=== PATIENT | male | born 1960 | race Caucasian/White ===

== ENCOUNTER 2018-08-30 17:57 | Emergency (ER) | payer MEDICAID ==
[~2018-08-30] VITALS: Ht 188 cm; Wt 137.0 kg
[2018-08-30 18:13] VITALS: BP 147/87
--- NOTE | 2018-08-30 19:27 | NUR ---
PT TO ER BED 1
--- NOTE | 2018-08-30 19:34 | NUR ---
PT TO ED C/O RT WRIST ABSCESS TO RT WRIST X 1 WEEK. PT STATES "I SLAMMED SOME DRUGS RIGHT THERE AND I MISSED AND THEN IT BECAME BIG". SWELLING NOTED TO RT WRIST. NO DRAINAGE NOTED. PT PLACED INTO BED, PENDING MD ASHTON. PMH--HEROIN USE NKDA
[2018-08-30] MEDS ORDERED: LIDOCAINE 1% 500 MG/50 ML VIAL INJ SCH (20:35)
--- NOTE | 2018-08-30 21:00 | NUR ---
1% LIDOCAINE PULLED AND GIVEN BY FABIANA PERDOMO FOR I&D.
[2018-08-30] MEDS ORDERED: LIDOCAINE MPF 1% 5mL VIAL ONE (21:08)
[2018-08-30 21:30] VITALS: BP 144/84
--- NOTE | 2018-08-30 21:30 | NUR ---
Patient discharged with v/s stable. Written and verbal after care instructions given and explained. Patient alert, oriented and verbalized understanding of instructions. Ambulatory with steady gait. All questions addressed prior to discharge. ID band removed. Patient advised to follow up with PMD. Rx of MOTRIN, KEFLEX, AND SEPTRA given. Patient educated on indication of medication including possible reaction and side effects. Opportunity to ask questions provided and answered.
== END 2018-08-30 21:30 | disposition home or self-care (01) ==
LOC: MED 17:57
DX: L02.413 Cutaneous abscess of right upper limb (principal)
CPT/HCPCS: 10060; 99283; J2001

== ENCOUNTER 2018-12-25 18:54 | Emergency (ER) | payer MEDICAID ==
[~2018-12-25] VITALS: Ht 188 cm; Wt 134.3 kg
[2018-12-25 18:59] VITALS: BP 124/73
--- NOTE | 2018-12-25 19:10 | NUR ---
PT TO ER BED 11
--- NOTE | 2018-12-25 19:33 | NUR ---
58 YO M BIB SELF PRESENTS TO ED C/O ABSCESS TO RIGHT SUPERIOR WRIST X 3 DAYS. NO DRAINAGE OR OPENING AT THIS TIME. PT STATES HE HAD SIMILAR INSTANCE TO SAME AREA APPROX 6 MONTHS AGO. SITE IS SOFT, EDEMETOUS. PT REPORTS CAUSING 5/10 PAIN TO WRIST. PT ALSO REPORTS SUBJECTIVE FEVERS AT HOME. TEMP IS 99.8 AT THIS TIME. -- PT AWAKE, ALERT, CALM, COOPERATIVE. ANSWERS QUESTIONS APPROPRIATELY. BEHAVIOR AGE APPROPRIATE. -- SKIN PINK, WARM, DRY. BREATHING EVEN, UNLABORED. PMH-- HTN, DM
--- NOTE | 2018-12-25 20:03 | NUR ---
DR. RAMIREZ EVALUATING AT BEDSIDE.
[2018-12-25] MEDS ORDERED: NACL 0.9% 1,000 ML IV ONE (20:05)
[2018-12-25] MEDS ORDERED: MORPHINE SULFATE 4 MG/ML SYR IVP ONE (20:05)
--- NOTE | 2018-12-25 20:20 | NUR ---
Ultrasound at bedside.
--- NOTE | 2018-12-25 20:47 | NUR ---
LAB AT BEDSIDE DRAWING BLOOD.
--- NOTE | 2018-12-25 21:14 | NUR ---
RN X 2 TRIED SEVERAL ATTEMPTS TO START IV X 5 TRYS. CHARGE NURSE AT BEDSIDE ATTEMPTING IV.
[2018-12-25 21:17] LABS: BASOPHILS # (AUTO) 0.1 K/uL (0.00-0.22); BASOPHILS % (AUTO) 0.7 % (0.0-2.0); EOSINOPHILS # (AUTO) 0.3 K/uL (0-0.4); HEMATOCRIT 37.8 % (36-52); HEMOGLOBIN 13.2 g/dL (12.0-18.0); LYMPHOCYTES # (AUTO) 3.1 K/uL (2.0-11.5); LYMPHOCYTES % (AUTO) 33.3 % (20.5-51.1); MEAN CORPUSCULAR HEMOGLOBIN 31 pg (27-31); MEAN CORPUSCULAR HGB CONC 35 g/dL (33-37); MEAN CORPUSCULAR VOLUME 88.7 fL (80-94); MONOCYTES # (AUTO) 1.1 K/uL (0.8-1.0); MONOCYTES % (AUTO) 11.5 % (1.7-9.3); NEUTROPHILS # (AUTO) 4.8 K/uL (1.8-7.7); NEUTROPHILS % (AUTO) 51.5 % (42.2-75.2); PLATELET COUNT (AUTO) 137 K/uL (140-450); RED BLOOD CELL COUNT(AUTO) 4.26 MIL/uL (4.20-6.10); RED CELL DISTRIBUTION WIDTH 13.6 % (11.6-13.7); WHITE BLOOD COUNT (AUTO) 9.4 K/uL (4.8-10.8)
[2018-12-25 21:24] LABS: ANION GAP 14.1 (8-16); CARBON DIOXIDE 25.6 mmol/L (21-32); CREATININE 0.9 mg/dL (0.7-1.3); POTASSIUM 3.7 mmol/L (3.5-5.1)
[2018-12-25 21:31] LABS: ALBUMIN 2.7 g/dL (3.4-5.0); TOTAL BILIRUBIN 0.5 mg/dL (0.0-1.0)
--- NOTE | 2018-12-25 21:59 | NUR ---
XRAY AT BEDSIDE.
[2018-12-25] MEDS ORDERED: CLINDAMYCIN 600 MG in DEXTROSE 5% 50 ML IV ONE (22:45)
[2018-12-25] MEDS ORDERED: CLINDAMYCIN 600 MG/4 ML VIAL ONE (23:40)
--- NOTE | 2018-12-26 00:51 | NUR ---
[facility] TRANSPORT AT BEDSIDE
[2018-12-26 01:15] VITALS: BP 114/81
--- NOTE | 2018-12-26 01:15 | NUR ---
Patient to be transferred to [facility]. Is being transferred due to insurance request. Receiving facility has accepting physician and available space. ER physician has signed transfer form. Patient or responsible alliance party has agreed to transfer and signed form. Patient belongings inventoried and will be sent with patient. Copy of nursing notes, lab reports, EKG, Physicians Orders and X-rays to be sent with patient.
--- NOTE | 2018-12-26 01:15 | NUR ---
PT TAKEN BY [facility] TRANSPORT TO [facility] ICU 3
--- NOTE | 2018-12-26 01:45 | NUR ---
REPORT GIVEN TO MONA JACOBS AT [facility].
--- NOTE | 2018-12-30 06:37 | NUR ---
Late entry. Confirmed with RN that Clindamycin IVPB completed at 2405
--- NOTE | 2019-01-03 04:57 | NUR ---
Late entry. Confirmed with RN that 1000ml 0.9 NS IV bolus completed at 2242.
== END 2018-12-26 01:15 | disposition short-term general hospital (02) ==
LOC: MED 18:54
DX: L03.113 Cellulitis of right upper limb (principal); E11.9 Type 2 diabetes mellitus without complications; I10 Essential (primary) hypertension
CPT/HCPCS: 36415; 73110; 76881; 80053; 83605; 85025; 85651; 86140; 87040; 96365; 96375; 99285; J2270; J3490; J7030; Q0092; 99284